=== PATIENT | male | born 1970 | race Hispanic/Latino ===

== ENCOUNTER 2024-02-09 13:09 | Emergency (ER) | payer BC ==
[~2024-02-09] VITALS: Ht 172.7 cm; Wt 89.6 kg
[2024-02-09] MEDS ORDERED: AMOX-426 PO (14:15)
[2024-02-09] MEDS ORDERED: IBUP-2070 PO (14:15)
[2024-02-09 14:17] VITALS: BP 137/64; PULSE 82; RESP 18; TEMP 98.2; O2SAT 98
== END 2024-02-09 14:59 | disposition home or self-care (01) ==
LOC: EDH 13:09
DX: L72.8 Other follicular cysts of the skin and subcutaneous tissue (principal)